=== PATIENT | female | born 1995 | race Caucasian/White ===

== ENCOUNTER 2017-07-13 05:14 | Inpatient (IN) | payer OTHER ==
[~2017-07-13] VITALS: Ht 160 cm; Wt 58.0 kg
[2017-07-13] MEDS ORDERED: TRINTAB3 PO (07:11)
[2017-07-13] MEDS ORDERED: ACETAMINOPHEN TAB 650MG DOSE (2X325MG) PO ONE (07:30)
[2017-07-13 07:54] LABS: MEAN CORPUSCULAR HEMOGLOBIN 28.3 pg (27.0-33.0); MEAN CORPUSCULAR HGB CONC 32.8 g/dl (32.0-36.5); MEAN CORPUSCULAR VOLUME 86.4 fl (80.0-96.0); PLATELET COUNT, AUTOMATED 278 10^3/uL (150-450); RED CELL DISTRIBUTION WIDTH 12.7 % (11.5-14.5); WHITE BLOOD COUNT 10.9 10^3/uL (4.0-10.0)
[2017-07-13 07:59] LABS: CONTROL LINE HCG INT CTR LINE PRESENT
[2017-07-13 08:14] LABS: ALBUMIN 4.1 GM/DL (3.2-5.2); ALBUMIN/GLOBULIN RATIO 1.32 (1.00-1.93); ALKALINE PHOSPHATASE 69 U/L (45-117); ALT/SGPT 25 U/L (12-78); ANION GAP 10 MEQ/L (8-16); AST/SGOT 28 U/L (7-37); BILIRUBIN,DIRECT < 0.1 MG/DL (0.0-0.2); BILIRUBIN,TOTAL 0.3 MG/DL (0.2-1.0); BLOOD UREA NITROGEN 9 MG/DL (7-18); CALCIUM LEVEL 8.7 MG/DL (8.5-10.1); CARBON DIOXIDE LEVEL 24 MEQ/L (21-32); CHLORIDE LEVEL 109 MEQ/L (98-107); CREATININE FOR GFR 0.67 MG/DL (0.55-1.02); GLOMERULAR FILTRATION RATE > 60.0 (>60); GLUCOSE, FASTING 114 MG/DL (70-105); POTASSIUM SERUM 3.9 MEQ/L (3.5-5.1); SODIUM LEVEL 143 MEQ/L (136-145); TOTAL PROTEIN 7.2 GM/DL (6.4-8.2)
[2017-07-13 08:30] LABS: METHADONE URINE NEGATIVE (NEGATIVE)
[2017-07-13] MEDS ORDERED: MOM 30ML SUSPENSION UDC PO PRN (15:15)
[2017-07-13] MEDS ORDERED: MAALOX 30 ML SUSP *UDC PO PRN (15:15)
[2017-07-13] MEDS ORDERED: ACETAMINOPHEN TAB 650MG DOSE (2X325MG) PO PRN (15:15)
[2017-07-13] MEDS ORDERED: traZODone 50 MG TAB PO PRN (15:15)
[2017-07-13 16:20] VITALS: BP 153/102
[2017-07-13] MEDS ORDERED: TRINESSA PO SCH (21:00)
[2017-07-13] MEDS ORDERED: IBUPROFEN 600 MG TAB PO PRN (22:15)
[2017-07-14 06:00] VITALS: BP 140/74
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
[2017-07-14] MEDS ORDERED: TRAZO50TA PO (12:24)
--- NOTE | 2017-07-14 16:31 | MHDSPDOC ---
[facility] Discharge Summary Discharge Summary DATE OF ADMISSION: Jul 13, 2017 at 15:08 DATE OF DISCHARGE: Jul 14, 2017 at 15:15 DISCHARGE DIAGNOSES: 1. . 2. . REASON FOR ADMISSION: CONSULTANTS INVOLVED: TREATMENT AND PROGRESS ON THE UNIT : . HOSPITAL COURSE: DISCHARGE ASSESSMENT: MENTAL STATUS EXAMINATION ON DISCHARGE: Patient is a -year old female, who is . Speech is . Language skills are . Thought processes including: . Thought content: . Abstract reasoning, and computation: . Description of associations: . Description of abnormal or psychotic thoughts: . Judgment: . Insight: . Orientation to . Recent and remote memory: . Attention span and concentration: . Language: . Fund of knowledge: . Mood: . Affect: . MEDICATIONS ON DISCHARGE: - for . - for . - for . PLAN/FOLLOWUP ARRANGEMENTS: . The amount of time spent in the coordination of care for this patient was approximately minutes. Vital Signs/I&Os Vital Signs Date Time Temp Pulse Resp B/P (MAP) Pulse Ox O2 Delivery O2 Flow Rate FiO2 07/14/17 06:00 97.2 88 18 140/74 (96) 88 Room Air Medications Scheduled (Trinessa 0.18/0.215/0.25 mg-35 Mcg) 1 Tab Tab, 1 TAB PO QHS, (Reported) Scheduled PRN Trazodone HCl (Trazodone HCl) 50 Mg Tab, 50 MG PO QHSP PRN for INSOMNIA, #5 Allergies Coded Allergies: No Known Allergies (Unverified , 07/13/17) REMI GALEAS PGY-1 Jul 14, 2017 16:31
--- NOTE | 2017-07-14 16:31 | MHHPEPDOC ---
[facility] History & Physical History and Physical DATE OF ADMISSION: Jul 13, 2017 at 15:08 LEGAL STATUS AT ADMISSION: . CHIEF COMPLAINT: . HISTORY OF PRESENT ILLNESS: Patient is a 22-year-old female, who PSYCHIATRIC REVIEW OF SYSTEMS: Affective: . Anxiety: . Trauma: . Psychosis: . Personality: . PAST PSYCHIATRIC HISTORY: Prior Psychiatric Disorder: . Outpatient Treatment: . Suicidal/Self injurious: [Denies]. Psychotropic Medication History: . ALLERGIES: Please see below. FAMILY PSYCHIATRIC HISTORY: [Denies]. SOCIAL HISTORY: Early Relations/development: . Sibling order: . Paternal relationships: . Education: . Occupational: . Legal: . Marital: . Economic: . Supports: . Abuse/trauma: . SUBSTANCE ABUSE HISTORY: . PAST MEDICAL/SURGICAL HISTORY: [None]. VITAL SIGNS: Please see below. MENTAL STATUS EXAMINATION: General appearance: Patient is a -year old female, who is . Speech: . Thought processes: . Thought content: . Abstract reasoning and computation: . Description of associations: . Description of abnormal or psychotic thoughts: . Judgment: . Insight: . Orientation: . Recent and remote memory: . Attention span and concentration: . Fund of knowledge: . Mood: "." Affect: . DIAGNOSES: 1. . 2. . 3. . ASSESSMENT: PROBLEM LIST: 1. . 2. . 3. . INITIAL TREATMENT PLAN: 1. Patient was admitted on a . 2. Complete history was obtained. 3. With patients permission, family will be contacted and database will be expanded. 4. Patients medication regimen will be reviewed and changed accordingly. 5. Patient will be provided with protected environment. 6. Patient will be treated with individual, group, and milieu therapies. 7. Patient will receive supportive psych-education. 8. Discharge planning will commence immediately. 9. Outpatient follow-up treatment will be strongly recommended. 10. The initial treatment plan will focus initially on: * Depression. * Risk for suicide. * Substance abuse. ESTIMATED LENGTH OF STAY: - DAYS. TIME SPENT COUNSELING AND COORDINATING INITIAL CARE: minutes. Vital Signs Vital Signs Date Time Temp Pulse Resp B/P (MAP) Pulse Ox O2 Delivery O2 Flow Rate FiO2 07/14/17 06:00 97.2 88 18 140/74 (96) 88 Room Air Medications Scheduled (Trinessa 0.18/0.215/0.25 mg-35 Mcg) 1 Tab Tab, 1 TAB PO QHS, (Reported) Scheduled PRN Trazodone HCl (Trazodone HCl) 50 Mg Tab, 50 MG PO QHSP PRN for INSOMNIA Allergies Coded Allergies: No Known Allergies (Unverified , 07/13/17) REMI GALEAS PGY-1 Jul 14, 2017 16:31
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
--- NOTE | 2017-07-15 10:00 | HPE ---
DATE OF ADMISSION: 07/13/2017 Please refer to the psychiatric history and evaluation for further details on this admission. This examination and history is intended for medical issues which may need treatment, followup, or consult on this 22-year-old female. ALLERGIES: No known allergies. PRIMARY CARE PROVIDER: Jeronimo Roca. SOCIAL HISTORY: She is , her is a soldier currently stationed at [employer]. Ethyl alcohol (EtOH): She will drink a weekend night and 6-8 drinks. Smokes: None. Recreational drug use: None. PAST MEDICAL HISTORY: Negative. PAST SURGICAL HISTORY: Tonsillectomy. HOME MEDICATIONS: - TriNessa 0.18/0.215/0.25-35 mcg one by mouth nightly FAMILY HISTORY: Noncontributory. LABORATORY STUDIES: WBC 10.9, hemoglobin 14.4, hematocrit 43.9, platelets 278. Sodium 143, potassium 3.9, chloride 109, CO2 24, BUN and creatinine 9 and 0.67, nonfasting blood sugar 114. TSH 3.33. Beta hCG negative. EtOH 0.151. CT maxillofacial negative. CT brain negative. CT neck negative. Right shoulder x-ray shows a grade 1 to 2 acromioclavicular (AC) joint separation with slight elevation of the clavicle relationship to the acromion and minimal widening. REVIEW OF SYSTEMS: Unremarkable other than complaining of pain in her arm, jaw, right shoulder. No tingling or numbness of extremities. No nausea, vomiting, or diarrhea. No hematochezia or melena. Review of systems otherwise is unremarkable. OBJECTIVE: 22-year-old cooperative female in no acute distress. Vital signs are stable. Height 63 inches, weight 58 kg, body mass index (BMI) 22.7. Blood pressure 130/65, pulse 65, respirations 18, temperature 98.3. Patient is alert and oriented times three. Pupils equal and reactive to light. Extraocular movements are intact. Cornea and sclerae clear. Conjunctivae is normal. No facial asymmetry. Bruising noted around right eye and right jaw area, no open areas. Pharynx, tongue, gums pink and moist. Tongue is midline. NECK: Supple without lymphadenopathy. No thyromegaly. No goiter. Carotids 2+ without bruit. CHEST: Clear to auscultation without wheeze or retraction. HEART: Regular. ABDOMEN: Soft, nontender. No masses, pulsations, or bruits. No organomegaly. Bowel sounds are positive. GENITOURINARY/RECTAL: Not done. EXTREMITIES: Show equal strength. Full range of motion. No cyanosis, clubbing , or edema. Pain in the right shoulder, cannot place arm behind back. without severe pain. Cannot raise arm above shoulder. Hand grasps are equal. Peripheral pulses equal and palpable bilaterally. SKIN: Warm and dry. IMPRESSION/PLAN: Psychiatric plan per psychiatry. X-rays show grade 1 to 2 acromioclavicular (AC ) joint separation. Will use ice for 24 hours and ibuprofen. Consider orthopedic consult. GRANTD
== END 2017-07-14 15:15 | disposition home or self-care (01) | DRG 897 ==
LOC: M ED 05:14 → EDBD 05:14 → M ED INP 15:08 → M PSY 16:07
PROVIDERS: ADMIT Psychiatry & Neurology Psychiatry; ATTEND Psychiatry & Neurology Psychiatry
DX: F19.94 Other psychoactive substance use, unspecified with psychoactive substance-induced mood disorder (principal); F41.9 Anxiety disorder, unspecified; F10.10 Alcohol abuse, uncomplicated